=== PATIENT | female | born 1955 | race Caucasian/White ===

== ENCOUNTER → 2016-08-30 | Outpatient (CLI) | payer BC | END | disposition home or self-care (01) | LOC: NUC 07:14 | DX: R68.81 Early satiety (principal) | CPT/HCPCS: 78264; A9541 ==

== ENCOUNTER 2017-02-17 13:21 | Emergency (ER) | payer BC ==
[~2017-02-17] VITALS: Ht 167.6 cm; Wt 85.7 kg
[2017-02-17 14:32] LABS: HEMATOCRIT 34.1 % (36.0-46.0); MCH 30.7 PG (29.0-34.0); MCHC 33.7 G/DL (30.0-36.0); MCV 91.2 FL (83-99); MEAN PLAT.VOLUME 11.2 uM^3 (9.5-12.4); PLATELET COUNT 228 K/uL (156-360); RBC DIS.WIDTH-CV 11.4 % (11.8-14.6); RBC DIS.WIDTH-SD 38.1 % (39-53); RED BLOOD COUNT 3.74 M/uL (3.80-5.20); WHITE BLOOD COUNT 5.3 K/uL (4.1-10.2)
[2017-02-17 14:39] LABS: PROTHROMBIN TIME 10.6 SEC (10.2-12.9)
[2017-02-17 14:41] LABS: PTT 28.7 SEC (25-37)
[2017-02-17 14:44] LABS: CHLORIDE 108 mEq/L (99-109); SODIUM 142 mEq/L (136-147)
[2017-02-17 14:46] LABS: GLUCOSE 83 mg/dL (70-99)
[2017-02-17 14:47] LABS: ANION GAP 11 MEQ/L (2-14)
[2017-02-17 14:50] LABS: GFR ESTIMATE (CALCULATED) > 59 mL/min/; UREA NITROGEN (BUN) 11 mg/dL (9-23)
[2017-02-17 14:54] LABS: TROP-I INTERPRETATION NEGATIVE; TROPONIN-I < 0.01 ng/mL (0.0-0.30)
[2017-02-17] MEDS ORDERED: IRON325 M1 PO (16:28)
[2017-02-17 17:11] VITALS: BP 124/75
[2017-02-21] MEDS ORDERED: CITALOPRAM HBR10 MG PO (09:00)
[2017-02-21] MEDS ORDERED: HYOSCYAMINE0.125 M1 SL (09:01)
[2017-02-21] MEDS ORDERED: LINZESS290 MCG PO (09:02)
== END 2017-02-17 17:22 | disposition home or self-care (01) ==
LOC: EME 13:21
PROVIDERS: Emergency Medicine
DX: K62.5 Hemorrhage of anus and rectum (principal); D64.9 Anemia, unspecified; K64.9 Unspecified hemorrhoids; R06.09 Other forms of dyspnea; I25.10 Atherosclerotic heart disease of native coronary artery without angina pectoris; R79.1 Abnormal coagulation profile
CPT/HCPCS: 71010; 71275; 80048; 84484; 85027; 85379; 85610; 85730; 86850; 86900; 86901; 93005; 99281; 99285; J7030

== ENCOUNTER 2017-02-21 14:03 | Day surgery (SDC) | payer BC ==
[~2017-02-21] VITALS: Ht 167.6 cm; Wt 83.9 kg
[~2017-02-21 14:03] MED LIST: CITALOPRAM HBR10 MG PO; HYOSCYAMINE0.125 M1 SL; IRON325 M1 PO; LINZESS290 MCG PO
[2017-02-21] MEDS ORDERED: TYLENOL EXTRA500 MG PO (14:39)
[2017-02-21 14:50] VITALS: BP 130/70
[2017-02-21] MEDS ORDERED: PERCOCET 5/31 TABLET PO (17:23)
[2017-02-21] MEDS ORDERED: COLACE100 MG PO (17:23)
[2017-02-21 18:36] VITALS: BP 143/70
[2017-02-21 19:30] VITALS: BP 153/76
[2017-02-21 20:43] VITALS: BP 141/69
== END 2017-02-21 20:48 | disposition home or self-care (01) ==
LOC: SDC 14:03
DX: K62.3 Rectal prolapse (principal); K64.5 Perianal venous thrombosis; K21.9 Gastro-esophageal reflux disease without esophagitis; I34.1 Nonrheumatic mitral (valve) prolapse; F43.23 Adjustment disorder with mixed anxiety and depressed mood; R01.1 Cardiac murmur, unspecified; Z88.2 Allergy status to sulfonamides; Z85.828 Personal history of other malignant neoplasm of skin
CPT/HCPCS: J0131; J0330; J1100; J1170; J2250; J2405; J3010